=== PATIENT | male | born 1935 | race Caucasian/White ===

== ENCOUNTER → 2016-10-14 | Outpatient (CLI) | payer OTHER ==
[~2016-10-14] MED LIST: ASPCH81X PO; ASPI81TA28 PO; ATOR-22 PO; BUPR-79 PO; DICL50TA3 PO; GLC500 PO; GLIP-199 PO; LIRA18IN SC; LISI-461 PO; METO25TA56 PO; MISCTAB30 PO; MULT-190 PO; MULT-845 PO; OMEP20CA59 PO; OXYC7.5T78 PO; RIVA1TAB4 PO; [UNRECOGNIZED DRUG - CODE] PO
[2016-10-14 13:04] LABS: BLOOD UREA NITROGEN 25 mg/dl (7-18); BUN/CREATININE RATIO 18.9 (10-20); CALCIUM 9.5 mg/dl (8.5-10.1); CARBON DIOXIDE 27 mmol/L (21-32); CHLORIDE 102 mmol/L (98-107); CHOLESTEROL 134 mg/dl (0-200); GLUCOSE 108 mg/dl (70-99); POTASSIUM 4.6 mmol/L (3.5-5.1); SODIUM 140 mmol/L (136-145)
[2016-10-14 13:07] LABS: CHOLESTEROL/HDL RATIO 3.4; HDL CHOLESTEROL 39 mg/dl; TRIGLYCERIDES 214 mg/dl (0-150); VERY LOW DENSITY LIPOPROT CALC 43 mg/dl
[2016-10-14 13:32] LABS: ESTIMATED AVERAGE GLUCOSE 171 mg/dl; HA1C FLAG Normal (Normal)
== END | disposition home or self-care (01) ==
LOC: C.LABSPEC 12:23
PROVIDERS: ATTEND Internal Medicine
DX: Z00.00 Encounter for general adult medical examination without abnormal findings (principal); E78.5 Hyperlipidemia, unspecified; E11.65 Type 2 diabetes mellitus with hyperglycemia; I10 Essential (primary) hypertension

== ENCOUNTER → 2017-02-17 | Outpatient (CLI) | payer OTHER ==
[2017-02-17 12:53] LABS: BASO % 0.8 %; BASO ABS # 0.04 K/uL (0-0.2); COMPLETE YES; EOS % 6.4 %; HEMATOCRIT 49.6 % (42-52); IG% 0.2 %; LYMPH % 23.7 %; LYMPH ABS # 1.18 K/uL (1.2-3.4); MEAN CELL VOLUME 103.3 fL (80-100); MEAN CORPUSCULAR HEMOGLOBIN 33.1 pg (25-34); MEAN CORPUSCULAR HGB CONC 32.1 g/dl (32-36); MEAN PLATELET VOLUME 10.8 fL (7.4-10.4); NEUT % 58.9 %; PLATELET COUNT 213 K/uL (130-400); WHITE BLOOD COUNT 4.98 K/uL (4.8-10.8)
[2017-02-17 13:21] LABS: ALT/SGPT 38 U/L (12-78); AST/SGOT 19 U/L (15-37); BLOOD UREA NITROGEN 25 mg/dl (7-18); CALCIUM 8.8 mg/dl (8.5-10.1); CARBON DIOXIDE 31 mmol/L (21-32); CHLORIDE 103 mmol/L (98-107); GLUCOSE 117 mg/dl (70-99); POTASSIUM 4.5 mmol/L (3.5-5.1); SODIUM 138 mmol/L (136-145)
[2017-02-17 13:32] LABS: ALB/GLOB RATIO 1.1 (0.9-2); ALKALINE PHOSPHATASE 69 U/L (45-117); CHOLESTEROL 210 mg/dl (0-200); CHOLESTEROL/HDL RATIO 5.5; HDL CHOLESTEROL 38 mg/dl; TRIGLYCERIDES 192 mg/dl (0-150); VERY LOW DENSITY LIPOPROT CALC 38 mg/dl
[2017-02-17 13:34] LABS: RATIO 41.4 mcg/mg (0-30.0)
[2017-02-17 13:39] LABS: ESTIMATED AVERAGE GLUCOSE 171 mg/dl; HA1C FLAG Normal (Normal)
== END | disposition home or self-care (01) ==
LOC: C.LABSPEC 12:07
PROVIDERS: ATTEND Internal Medicine
DX: E11.9 Type 2 diabetes mellitus without complications (principal); I48.91 Unspecified atrial fibrillation; I10 Essential (primary) hypertension; E78.5 Hyperlipidemia, unspecified

== ENCOUNTER → 2017-02-21 | Outpatient (CLI) | payer OTHER | END | disposition home or self-care (01) | LOC: C.LABSPEC 12:28 | PROVIDERS: ATTEND Internal Medicine | DX: Z12.11 Encounter for screening for malignant neoplasm of colon (principal) ==

== ENCOUNTER 2017-06-12 19:55 | Emergency (ER) | payer OTHER ==
[~2017-06-12] VITALS: Ht 182.9 cm; Wt 123.6 kg
[~2017-06-12 19:55] MED LIST changes: -ASPI81TA28 PO; -METO25TA56 PO; -RIVA1TAB4 PO
[2017-06-12 20:00] VITALS: Ht 182.9 cm; Wt 123.6 kg
[2017-06-12] MEDS ORDERED: SODIUM CHLORIDE 0.9% 1000ML 1,000 ML IV STA (20:07)
[2017-06-12] MEDS ORDERED: ONDANSETRON INJ 2 MG/ML 2 ML VIAL IV STA ×2 (20:07→22:20)
--- NOTE | 2017-06-12 20:13 | EMERGENCY ROOM VISIT NOTE ---
History Report prepared by Tracie: Kwame Tong Under the Supervision of: Dr. Marija Perez D.O. First contact with patient: 19:59 Chief Complaint: DIZZY Stated Complaint: DIZZY/NAUSEA History of Present Illness The patient is a 82 year old male who presents to the Emergency Room with complaints of resolved dizziness that occurred an hour prior to arrival. He describes his feeling as off balance. The patient states that the dizziness with moving his head. He reports that about an hour prior to arrival, he started to experience a right sided headache. The patient states that he started to experience dizziness. He reports that after experiencing dizziness, he became nauseous and vomited three times. The patient states that he currently is experiencing dizziness only if he turns his head and fatigue. The patient admits that he experienced shortness of breath earlier today, but reports that was because he was working around the house. He states that he takes Xarelto for his history of atrial fibrillation. The patient states that he recently changed his medication three weeks ago. He admits that he has a history of falling multiple times because he "works too fast". States he only scrapes his knees, denies head injury. The patient denies blurry vision, double vision, chest pain, abdominal pain, numbness or tingling, a cough, a cold, and a history of edema. 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 A total of 10 systems reviewed and were otherwise negative. Past Medical & Surgical Medical Problems: (1) Atrial fibrillation Family History Patient reports no known family medical history. Social History Smoking Status: Former Smoker Housing Status: assisted living Occupation Status: retired Current/Historical Medications Scheduled Aspirin (Aspirin Ec), 81 MG PO QPM Bupropion (Wellbutrin Sr), 150 MG PO BID Diclofenac (Voltaren), 50 MG PO BID Glipizide (Glipizide Er), 20 MG PO BID Liraglutide (Victoza), 1.8 MG SC QPM Lisinopril (Zestril), 10 MG PO DAILY Metformin HCl (Metformin HCl), 500 MG PO BID Metoprolol Tartrate (Lopressor) (Lopressor), 25 MG PO BID Misc Natural Products (Osteo Bi-Flex Joint Shiel), 1 TAB PO QAM Multiple Vitamins W/ Minerals (Centrum Silver Adult 50+), 1 TAB PO QAM Ocuvite Preservision (Ocuvite Preservision), 1 TAB PO QPM Omeprazole (Prilosec), 20 MG PO QAM Rivaroxaban (Xarelto), 20 MG PO DAILY Allergies Coded Allergies: Clindamycin (Verified Adverse Reaction, Unknown, nausea, 01/28/16) Physical Exam Vital Signs Date Time Temp Pulse Resp B/P (MAP) Pulse Ox O2 Delivery O2 Flow Rate FiO2 06/12/17 23:00 88 19 127/82 97 Nasal Cannula 3.0 06/12/17 22:41 94 142/90 95 Nasal Cannula 06/12/17 22:35 97 16 157/93 93 Nasal Cannula 2.0 06/12/17 22:30 91 16 155/102 95 Nasal Cannula 2.0 06/12/17 22:26 100 20 179/125 95 Nasal Cannula 2.0 06/12/17 22:20 87 16 184/123 95 Nasal Cannula 2.0 06/12/17 21:41 186/127 93 Nasal Cannula 3.0 06/12/17 21:36 188/134 06/12/17 21:35 206/128 06/12/17 21:31 206/130 06/12/17 21:26 191/139 06/12/17 21:25 96 17 06/12/17 21:24 205/179 06/12/17 21:16 221/153 06/12/17 21:07 195/144 06/12/17 20:31 174/122 06/12/17 20:26 35.9 06/12/17 20:25 91 18 96 Nasal Cannula 3.0 06/12/17 20:05 83 06/12/17 20:01 216/138 06/12/17 20:00 88 20 216/138 89 Room Air Physical Exam GENERAL: pale, diaphoretic, alert, well appearing, well nourished, no distress, non-toxic EYE EXAM: normal conjunctiva, PERRL . Horizontal nystagmus, worse to the right. No vertical or rotary nystagmus. OROPHARYNX: no exudate, no erythema, lips, buccal mucosa, and tongue normal and mucous membranes are moist NECK: supple, no nuchal rigidity, no adenopathy, non-tender LUNGS: Clear to auscultation. Normal chest wall mechanics HEART:Tachycardic, no murmurs, S1 normal and S2 normal ABDOMEN: abdomen soft, non-tender, normo-active bowel sounds, no masses, no rebound or guarding. BACK: Back is symmetrical on inspection and there is no deformity, no midline tenderness, no CVA tenderness. SKIN: no rashes and no bruising UPPER EXTREMITIES: upper extremities are grossly normal. LOWER EXTREMITIES: 1+ lower extremity edema bilaterally. NEURO EXAM: Normal sensorium, cranial nerves II-XII grossly intact, normal speech, no gross weakness of arms, no gross weakness of legs. Gross sensation intact. Medical Decision & Procedures ER Provider Diagnostic Interpretation: Radiology results have been interpreted by the radiologist and reviewed by me. CT SCAN OF THE BRAIN WITHOUT IV CONTRAST CLINICAL HISTORY: Headache and dizziness. COMPARISON STUDY: No priors. TECHNIQUE: Unenhanced axial CT scan of the brain is performed from the vertex to the skull base. CT DOSE: 773.57 mGy.cm FINDINGS: Brain parenchyma: There is a large parenchymal hematoma identified in the right cerebellar hemisphere. This measures approximately 3.5 x 5 cm with surrounding edema. This causes mass effect on the fourth ventricle. No additional foci of hemorrhage are identified. No midline shift is seen. There are age-related involutional changes noting mild subcortical and periventricular microangiopathic change. There is no evidence of acute territorial ischemia by CT criteria. No extra-axial fluid collection is seen. Ventricles, sulci, cisterns: Prominent secondary to involutional change. See above. Intracranial vasculature: There is atherosclerotic calcification of the cavernous carotid arteries. Calvarium: Unremarkable. Sinuses and mastoids: The visualized paranasal sinuses are clear. The mastoid air cells are well pneumatized. Orbits: The bony orbits are grossly intact. There are bilateral ocular lens implants. IMPRESSION: 1. There is an approximately 3.5 x 5 cm hemorrhage centered in the right cerebellar hemisphere with surrounding edema. This effaces the fourth ventricle. 2. There is no evidence of hydrocephalus. 3. No additional focus of hemorrhage is seen. There is no evidence of acute territorial ischemia by CT criteria. Electronically signed by: Shashi Resendiz M.D. 06/12/2017 9:06 PM Dictated Date/Time: 06/12/2017 9:03 PM SINGLE VIEW CHEST CLINICAL HISTORY: Dizziness. Hypoxia. FINDINGS: An AP, portable, upright chest radiograph is compared to study dated 07/22/2014. The examination is degraded by portable technique and apical lordotic positioning. The heart is top normal for projection and there is atherosclerotic calcification of the thoracic aorta. The pulmonary vasculature is noncongested. Chronic interstitial thickening is similar to previous. Obstructive physiology is suspected. No airspace consolidation or large pleural effusion is identified. No pneumothorax is seen. The skeletal structures are osteopenic. The bony thorax is grossly intact. IMPRESSION: No acute cardiopulmonary abnormality. Electronically signed by: Shashi Resendiz M.D. 06/12/2017 9:09 PM Dictated Date/Time: 06/12/2017 9:08 PM Laboratory Results 06/12/17 20:10 Red Blood Count 4.98, Mean Corpuscular Volume 102.4, Mean Corpuscular Hemoglobin 32.9, Mean Corpuscular Hemoglobin Concent 32.2, Mean Platelet Volume 10.3, Neutrophils (%) (Auto) 76.5, Lymphocytes (%) (Auto) 12.7, Monocytes (%) ( Auto) 6.6, Eosinophils (%) (Auto) 3.5, Basophils (%) (Auto) 0.5, Neutrophils # ( Auto) 6.51, Lymphocytes # (Auto) 1.08, Monocytes # (Auto) 0.56, Eosinophils # ( Auto) 0.30, Basophils # (Auto) 0.04 06/12/17 20:10 Test 06/12/17 20:10 06/12/17 20:19 06/12/17 21:35 White Blood Count 8.51 K/uL (4.8-10.8) Red Blood Count 4.98 M/uL (4.7-6.1) Hemoglobin 16.4 g/dL (14.0-18.0) Hematocrit 51.0 % (42-52) Mean Corpuscular Volume 102.4 fL (80-100) Mean Corpuscular Hemoglobin 32.9 pg (25-34) Mean Corpuscular Hemoglobin Concent 32.2 g/dl (32-36) Platelet Count 182 K/uL (130-400) Mean Platelet Volume 10.3 fL (7.4-10.4) Neutrophils (%) (Auto) 76.5 % Lymphocytes (%) (Auto) 12.7 % Monocytes (%) (Auto) 6.6 % Eosinophils (%) (Auto) 3.5 % Basophils (%) (Auto) 0.5 % Neutrophils # (Auto) 6.51 K/uL (1.4-6.5) Lymphocytes # (Auto) 1.08 K/uL (1.2-3.4) Monocytes # (Auto) 0.56 K/uL (0.11-0.59) Eosinophils # (Auto) 0.30 K/uL (0-0.5) Basophils # (Auto) 0.04 K/uL (0-0.2) RDW Standard Deviation 48.6 fL (36.4-46.3) RDW Coefficient of Variation 13.0 % (11.5-14.5) Immature Granulocyte % (Auto) 0.2 % Immature Granulocyte # (Auto) 0.02 K/uL (0.00-0.02) Prothrombin Time 12.5 SECONDS (9.0-12.0) Prothromb Time International Ratio 1.2 (0.9-1.1) Anion Gap 8.0 mmol/L (3-11) Est Creatinine Clear Calc Drug Dose 59.5 ml/min Estimated GFR () 58.9 Estimated GFR (Non- 50.8 BUN/Creatinine Ratio 24.5 (10-20) Calcium Level 9.2 mg/dl (8.5-10.1) Magnesium Level 2.0 mg/dl (1.8-2.4) Total Bilirubin 1.6 mg/dl (0.2-1) Aspartate Amino Transf (AST/SGOT) 20 U/L (15-37) Alanine Aminotransferase (ALT/SGPT) 30 U/L (12-78) Alkaline Phosphatase 84 U/L (45-117) Troponin I < 0.015 ng/ml (0-0.045) Pro-B-Type Natriuretic Peptide 1592 pg/ml (0-1800) Total Protein 7.6 gm/dl (6.4-8.2) Albumin 3.9 gm/dl (3.4-5.0) Globulin 3.7 gm/dl (2.5-4.0) Albumin/Globulin Ratio 1.1 (0.9-2) Bedside Lactic Acid Venous 1.79 mmol/L (0.90-1.70) Urine Color YELLOW Urine Appearance CLEAR (CLEAR) Urine pH 8.0 (4.5-7.5) Urine Specific [place] 1.017 (1.000-1.030) Urine Protein TRACE (NEG) Urine Glucose (UA) 2+ (NEG) Urine Ketones NEG (NEG) Urine Occult Blood NEG (NEG) Urine Nitrite NEG (NEG) Urine Bilirubin NEG (NEG) Urine Urobilinogen NEG (NEG) Urine Leukocyte Esterase NEG (NEG) Urine WBC (Auto) 0 /hpf (0-5) Urine RBC (Auto) 0-4 /hpf (0-4) Urine Hyaline Casts (Auto) 0 /lpf (0-5) Urine Epithelial Cells (Auto) 5-10 /lpf (0-5) Urine Bacteria (Auto) NEG (NEG) Laboratory results per my review. Medications Administered Medications (Trade) Dose Ordered Sig/Nic Route Start Time Stop Time Status Last Admin Dose Admin Ondansetron HCl (Zofran Inj) 4 mg NOW STAT IV 06/12/17 20:07 06/12/17 20:09 DC 06/12/17 20:19 4 MG Sodium Chloride 1,000 ml @ 125 mls/hr Q8H STAT IV 06/12/17 20:07 06/13/17 01:19 DC 06/12/17 20:19 125 MLS/HR Labetalol HCl (Normodyne IV) 10 mg NOW STAT IV 06/12/17 21:17 06/12/17 21:18 DC 06/12/17 21:29 10 MG Labetalol HCl (Normodyne IV) 10 mg NOW STAT IV 06/12/17 21:37 06/12/17 21:38 DC 06/12/17 21:41 10 MG Nicardipine HCl 25 mg/Sodium Chloride 250 ml @ 0 mls/hr Q0M STAT IV 06/12/17 21:58 06/12/17 22:00 DC 06/12/17 22:14 50 MLS/HR Ondansetron HCl (Zofran Inj) 4 mg NOW STAT IV 06/12/17 22:20 06/12/17 22:21 DC 06/12/17 22:24 4 MG Nicardipine HCl 25 mg/Sodium Chloride 250 ml @ 0 mls/hr Q0M PRN IV 06/12/17 22:45 06/13/17 01:19 DC 06/12/17 22:40 150 MLS/HR ECG Indication: other (dizziness) Rate (beats per minute): 90 Rhythm: atrial fibrillation Findings: no acute ischemic change, other (Normal axis, normal WRS and QTC) ED Course 1955: The patient was evaluated in room B12B. A complete history and physical exam was performed. 2006: Ordered Zofran Injection 4 mg Iv, Sodium Chloride 1000 ml @ 125 mls/hr IV. 2109: I reevaluated the patient and updated the patient and his results. He is still dizzy, but alert. He would like to be transferred to [facility]. 2116: Ordered Normodyne IV 10 mg. 2136: Ordered Normodyne IV 10 mg. 2151: I reevaluated the patient and he is trying to urinated. I discussed code status and intubation. I told him that if his condition deteriorates, he will have to be intubated. 2157: Ordered Nicardipine HCl 25 mg/ Sodium Chloride 250 ml @ 0 mls/hr IV. 2207: I reevaluated the patient and he is still nauseous and dizzy. 2219: Ordered Zofran Injection 4 mg Iv. 2221: I discussed the patient's case with Dr. Levin, [facility] Neurosurgery. He understands the patient's condition and agrees to accept the patient, recommends the patient's blood pressure be less than 140 systolically. He is aware pt is on a cardene drip at this time. 2225: I discussed the patient's case with Dr. Tamayo, [facility] [employer] Operator. Pt to be admitted to ICU. 2248: I reevaluated the patient and his blood pressure 140/90. His headache, nausea, and dizziness are better. 2254: [facility] arrived and the patient is being transferred. 2304: I reevaluated the patient and did a repeat neuro exam. [facility] is by his side and taking him [facility]. Medical Decision The differential diagnosis includes etiologies such as benign positional vertigo , dehydration, hypovolemia, anemia, tumor, infection, hypoglycemia, electrolyte abnormalities, cardiac sources, intracerebral event, toxicologic, neurologic, as well as others were entertained. Pt sx most likely explained by cerebellar bleed. Initially elevated BP thought to be secondary to vomiting and discomfort, however remained high despite improvement in sx. Initially labetolol tried, but BP not well enough improved so cardene drip started with better results. Neurosurgery gave BP guidelines and so cardene was titrated to achieve this. Pt transported by helicopter due to concern for clinical condition, incoming weather and concern about availability of ground crew. Pt continued to mentate well, no focal neuro deficits otw. Pt and family aware of all results and need for urgent transfer to tertiary care facility. Other labs reassuring except for hyperglycemia, doubt infectious component, and pt denies any recent trauma to head. Medication Reconcilliation Current Medication List: was personally reviewed by me Blood Pressure Screening Patient's blood pressure: Elevated blood pressure Blood pressure disposition: Elevated BP felt to be situational Consults Time Called: 2221 Consulting Physician: [facility] Returned Call: 2221 I discussed the patient's case with [facility]. He understands the patient's condition and agrees ot accept the patient if the patient's blood pressure drops to 140 systolically. I will order more medication. Additional Consults: Time Called: 2225 Consulted Physician: Paulina Koehler [employer] Operator Returned Call: 2225 Additional Comments: I discussed the patient's case with Paulina Koehler [employer] Operator. We discussed the patient's bed assignment. Impression Primary Impression: Cerebellar hemorrhage Additional Impressions: HTN (hypertension) Vomiting Headache Dizziness Critical Care I have personally spent 60 minutes of critical care time in the direct management of this patient. This includes bedside care, interpretation of diagnostic studies, and testing, discussion with consultants, patient, and family members, and other required patient management activities. This 60 minutes is in excess of all separately billable procedures. Scribe Attestation The scribe's documentation has been prepared under my direction and personally reviewed by me in its entirety. I confirm that the note above accurately reflects all work, treatment, procedures, and medical decision making performed by me. Departure Information Dispostion Transfer Acute Care Facility Referrals Jerry Vu M.D. (PCP) Patient Instructions My [facility] Problem Qualifiers Primary Impression: Cerebellar hemorrhage Intracerebral hemorrhage etiology: nontraumatic Laterality: right Qualified Codes: I61.4 - Nontraumatic intracerebral hemorrhage in cerebellum Additional Impressions: HTN (hypertension) Hypertension type: essential hypertension Qualified Codes: I10 - Essential ( primary) hypertension Vomiting Vomiting type: unspecified Vomiting Intractability: non-intractable Nausea presence: with nausea Qualified Codes: R11.2 - Nausea with vomiting, unspecified Headache Headache type: unspecified Headache chronicity pattern: acute headache Intractability: not intractable Qualified Codes: R51 - Headache
[2017-06-12 20:26] VITALS: TEMP 35.9
[2017-06-12 20:26] LABS: BASO % 0.5 %; BASO ABS # 0.04 K/uL (0-0.2); COMPLETE YES; EOS % 3.5 %; IG% 0.2 %; LYMPH % 12.7 %; LYMPH ABS # 1.08 K/uL (1.2-3.4); MEAN CELL VOLUME 102.4 fL (80-100); MEAN CORPUSCULAR HEMOGLOBIN 32.9 pg (25-34); MEAN CORPUSCULAR HGB CONC 32.2 g/dl (32-36); MEAN PLATELET VOLUME 10.3 fL (7.4-10.4); MONO % 6.6 %; NEUT % 76.5 %; PLATELET COUNT 182 K/uL (130-400); RED BLOOD COUNT 4.98 M/uL (4.7-6.1); WHITE BLOOD COUNT 8.51 K/uL (4.8-10.8)
[2017-06-12 20:35] LABS: INR 1.2 (0.9-1.1); PROTHROMBIN TIME (PATIENT) 12.5 SECONDS (9.0-12.0)
[2017-06-12 20:43] LABS: ALT/SGPT 30 U/L (12-78); BLOOD UREA NITROGEN 32 mg/dl (7-18); BUN/CREATININE RATIO 24.5 (10-20); CALCIUM 9.2 mg/dl (8.5-10.1); CARBON DIOXIDE 29 mmol/L (21-32); CHLORIDE 98 mmol/L (98-107); GLUCOSE 234 mg/dl (70-99); POTASSIUM 4.1 mmol/L (3.5-5.1); SODIUM 135 mmol/L (136-145)
[2017-06-12 20:48] LABS: ALB/GLOB RATIO 1.1 (0.9-2); ALKALINE PHOSPHATASE 84 U/L (45-117); AST/SGOT 20 U/L (15-37)
[2017-06-12] MEDS ORDERED: RIVA1TAB4 PO (20:59)
[2017-06-12] MEDS ORDERED: METO25TA56 PO (20:59)
[2017-06-12] MEDS ORDERED: ASPI81TA28 PO (21:03)
--- NOTE | 2017-06-12 21:07 | DIAGNOSTIC IMAGING REPORT ---
CT SCAN OF THE BRAIN WITHOUT IV CONTRAST CLINICAL HISTORY: Headache and dizziness. COMPARISON STUDY: No priors. TECHNIQUE: Unenhanced axial CT scan of the brain is performed from the vertex to the skull base. CT DOSE: 773.57 mGy.cm FINDINGS: Brain parenchyma: There is a large parenchymal hematoma identified in the right cerebellar hemisphere. This measures approximately 3.5 x 5 cm with surrounding edema. This causes mass effect on the fourth ventricle. No additional foci of hemorrhage are identified. No midline shift is seen. There are age-related involutional changes noting mild subcortical and periventricular microangiopathic change. There is no evidence of acute territorial ischemia by CT criteria. No extra-axial fluid collection is seen. Ventricles, sulci, cisterns: Prominent secondary to involutional change. See above. Intracranial vasculature: There is atherosclerotic calcification of the cavernous carotid arteries. Calvarium: Unremarkable. Sinuses and mastoids: The visualized paranasal sinuses are clear. The mastoid air cells are well pneumatized. Orbits: The bony orbits are grossly intact. There are bilateral ocular lens implants. IMPRESSION: 1. There is an approximately 3.5 x 5 cm hemorrhage centered in the right cerebellar hemisphere with surrounding edema. This effaces the fourth ventricle. 2. There is no evidence of hydrocephalus. 3. No additional focus of hemorrhage is seen. There is no evidence of acute territorial ischemia by CT criteria. Electronically signed by: Shashi Resendiz M.D. 06/12/2017 9:06 PM Dictated Date/Time: 06/12/2017 9:03 PM
--- NOTE | 2017-06-12 21:10 | DIAGNOSTIC IMAGING REPORT ---
SINGLE VIEW CHEST CLINICAL HISTORY: Dizziness. Hypoxia. FINDINGS: An AP, portable, upright chest radiograph is compared to study dated 07/22/2014. The examination is degraded by portable technique and apical lordotic positioning. The heart is top normal for projection and there is atherosclerotic calcification of the thoracic aorta. The pulmonary vasculature is noncongested. Chronic interstitial thickening is similar to previous. Obstructive physiology is suspected. No airspace consolidation or large pleural effusion is identified. No pneumothorax is seen. The skeletal structures are osteopenic. The bony thorax is grossly intact. IMPRESSION: No acute cardiopulmonary abnormality. Electronically signed by: Shashi Resendiz M.D. 06/12/2017 9:09 PM Dictated Date/Time: 06/12/2017 9:08 PM
[2017-06-12] MEDS ORDERED: LABETALOL HCL IV 5 MG/ML 20ML IV STA ×2 (21:17→21:37)
[2017-06-12 21:47] LABS: URINE APPEARANCE CLEAR (CLEAR); URINE BILIRUBIN NEG (NEG); URINE COLOR YELLOW; URINE NITRITE NEG (NEG); URINE SPECIFIC GRAVITY 1.017 (1.000-1.030); UROBILINOGEN NEG (NEG); ZZUR CULT IF INDIC CLEAN CATCH NO
[2017-06-12 21:49] LABS: MANUAL MICROSCOPIC REQUIRED? NO; REVIEW REQ? NO
[2017-06-12 21:50] LABS: SULFASALICYLIC ACID POS (NEG)
[2017-06-12] MEDS ORDERED: NiCARDipine IV 25 MG in SODIUM CHLORIDE 0.9% 250ML 240 ML IV STA (21:58)
[2017-06-12] MEDS: NiCARDipine IV 25 MG in SODIUM CHLORIDE 0.9% 250ML 240 ML IV PRN ×4 (22:20→22:40)
[2017-06-12 23:00] VITALS: BP 127/82; PULSE 88; O2SAT 97
== END 2017-06-12 23:18 | disposition short-term general hospital (02) ==
LOC: EDBD 19:55 → C.EDB 19:57
DX: I61.4 Nontraumatic intracerebral hemorrhage in cerebellum (principal); I48.91 Unspecified atrial fibrillation; I10 Essential (primary) hypertension; R42 Dizziness and giddiness; Z87.891 Personal history of nicotine dependence; Z79.82 Long term (current) use of aspirin; Z79.84 Long term (current) use of oral hypoglycemic drugs; Z79.899 Other long term (current) drug therapy; Z88.3 Allergy status to other anti-infective agents